=== PATIENT | female | born 1955 ===

== ENCOUNTER 2016-04-29 11:02 | Outpatient (CLI) | payer OTHER | END 2016-04-29 11:03 | disposition home or self-care (01) | LOC: NAVSJIPCSP 11:02 | PROVIDERS: ATTEND Internal Medicine | DX: E78.5 Hyperlipidemia, unspecified (principal) | CPT/HCPCS: 36415; 80061 ==

== ENCOUNTER 2016-07-30 10:43 | Outpatient (CLI) | payer OTHER ==
[2016-07-30 13:45] LABS: Cardiac Risk 4.1 (Less than 4.5)
== END 2016-07-30 10:44 | disposition home or self-care (01) ==
LOC: NAVSJIPCSP 10:43
PROVIDERS: ATTEND Internal Medicine
DX: E78.5 Hyperlipidemia, unspecified (principal)
CPT/HCPCS: 36415; 80061

== ENCOUNTER 2016-11-04 09:39 | Outpatient (CLI) | payer OTHER ==
[2016-11-04 13:44] LABS: Cardiac Risk 4.6 (Less than 4.5)
== END 2016-11-04 09:40 ==
LOC: NAVSJIPCSP 09:39
PROVIDERS: ATTEND Internal Medicine
DX: E78.5 Hyperlipidemia, unspecified (principal); Z79.899 Other long term (current) drug therapy
CPT/HCPCS: 36415; 80061